=== PATIENT | female | born 1985 ===

== ENCOUNTER 2022-07-07 08:55 | Inpatient (IN) | payer OTHER ==
[~2022-07-07] VITALS: Ht 152.4 cm; Wt 78.0 kg
[2022-07-09] MEDS ORDERED: FOLIC ACID0.4 MG PO (06:41)
[2022-07-09] MEDS ORDERED: COMPLETE NATAL1 EACH PO (06:41)
[2022-07-12] MEDS ORDERED: IBUPROFEN800 MG PO (09:03)
== END 2022-07-12 12:05 | disposition home or self-care (01) | DRG 788 ==
LOC: O/R 07-09 06:15 → OB/GYN 07-09 06:15
PROVIDERS: ADMIT Obstetrics & Gynecology; ATTEND Obstetrics & Gynecology
PROC: 4A1HXCZ Monitoring of Products of Conception, Cardiac Rate, External Approach (ICD-10-PCS; 2022-07-09)
PROC: 10D00Z1 Extraction of Products of Conception, Low, Open Approach (ICD-10-PCS; principal; 2022-07-09 07:00)
DX: O34.211 Maternal care for low transverse scar from previous cesarean delivery (principal); Z3A.38 38 weeks gestation of pregnancy; Z37.0 Single live birth; Z20.822 Contact with and (suspected) exposure to COVID-19